=== PATIENT | female | born 1930 | race Two or more races ===

== ENCOUNTER 2017-11-08 18:03 | Inpatient (IN) | payer OTHER ==
[~2017-11-08] VITALS: Ht 144.8 cm; Wt 77.1 kg
[2017-11-08] MEDS ORDERED: COZAAR100 MG (18:41)
[2017-11-08] MEDS ORDERED: TOPROL XL50 M1 (18:42)
[2017-11-08] MEDS ORDERED: PREDNISONE5 M1 (18:43)
[2017-11-08] MEDS ORDERED: ADULT ASPIRIN81 MG (18:43)
[2017-11-08] MEDS ORDERED: GABAPENTIN100 MG (18:43)
[2017-11-08] MEDS ORDERED: MELATONIN5 M4 (18:44)
[2017-11-08] MEDS ORDERED: VITAMIN D400 UNI2 (18:44)
[2017-11-08] MEDS ORDERED: RISPERIDONE ODT4 MG (18:45)
[2017-11-08] MEDS ORDERED: LANTUS SOL100 UNIT/1 (18:46)
[2017-11-08] MEDS ORDERED: HUMALOG JU100 UNIT/1 (18:46)
[2017-11-11] MEDS ORDERED: CIPRO500 MG PO (14:12)
[2017-11-11] MEDS ORDERED: ALIGN10.5 MG PO (14:13)
== END 2017-11-11 15:30 | disposition home or self-care (01) | DRG 386 ==
LOC: ER 18:03 → MEDI 11-09 13:01
DX: K51.518 Left sided colitis with other complication (principal); N17.8 Other acute kidney failure; E86.0 Dehydration; M06.89 Other specified rheumatoid arthritis, multiple sites; Z79.52 Long term (current) use of systemic steroids; K57.30 Diverticulosis of large intestine without perforation or abscess without bleeding; E11.22 Type 2 diabetes mellitus with diabetic chronic kidney disease; I12.9 Hypertensive chronic kidney disease with stage 1 through stage 4 chronic kidney disease, or unspecified chronic kidney disease; N18.3 Chronic kidney disease, stage 3 (moderate)

== ENCOUNTER → 2018-03-17 | Emergency (ER) | payer OTHER ==
[~2018-03-17] VITALS: Ht 149.9 cm; Wt 73.9 kg
[~2018-03-17] MED LIST: ADULT ASPIRIN81 MG; ALIGN10.5 MG PO; CIPRO500 MG PO; COZAAR100 MG; GABAPENTIN100 MG; HUMALOG JU100 UNIT/1; LANTUS SOL100 UNIT/1; MELATONIN5 M4; PREDNISONE5 M1; RISPERIDONE ODT4 MG; TOPROL XL50 M1; VITAMIN D400 UNI2
== END | disposition home or self-care (01) ==
LOC: ER 18:08
DX: E11.65 Type 2 diabetes mellitus with hyperglycemia (principal); R42 Dizziness and giddiness